=== PATIENT | female | born 1985 | race Caucasian/White ===

== ENCOUNTER → 2023-08-20 | Outpatient (CLI) | payer OTHER ==
[~2023-08-20] MED LIST: BIOTIN10000 MC1 PO; HCTZ 25MG TAB25 MG PO; Iohexol 300 - 10 ML VIAL IV ONE; PROZAC 20MG20 MG PO; Triamcinolone 40 MG/ML 1 ML VIAL IJ ONE
== END ==
LOC: COL.RAD 07:50
DX: M25.551 Pain in right hip (principal)
CPT/HCPCS: J0665; J3301; Q9967